=== PATIENT | male | born 1980 | race American Indian/Alaskan Native ===

== ENCOUNTER 2021-02-15 12:42 | Emergency (ER) | payer SELFPAY ==
[2021-02-15 12:46] VITALS: BP 124/78
--- NOTE | 2021-02-15 12:49 | Event Note ---
ED Screening Note Date of service: 02/15/21 Time: 12:47 ED Screening Note: 40 y/o male comes in for erection since 3 am. This initial assessment/diagnostic orders/clinical plan/treatment(s) is/are subject to change based on patients health status, clinical progression and re- assessment by fellow clinical providers in the ED. Further treatment and workup at subsequent clinical providers discretion. Patient/guardian urged not to elope from the ED as their condition may be serious if not clinically assessed and managed. Initial orders include: Patient roomed to room 38 immediately, inform charge nurse.
[2021-02-15] MEDS ORDERED: TERBUTALINE 1 MG/1 ML INJ SUB-Q ONE (12:55)
--- NOTE | 2021-02-15 13:01 | Emergency Department Report ---
ED General Adult HPI - General Chief complaint: Urogenital-Male Stated complaint: PROLONGED ERECTION Time Seen by Provider: 02/15/21 12:49 Source: patient Mode of arrival: Ambulatory Limitations: No Limitations - History of Present Illness Initial comments: Patient is 40 years old male with history of sickle cell trait. Patient presented to the ER complaining of prolonged erection started approximately 11 hours ago. Patient stated that he used phentolamine papeverine and prostaglandin injection for and both times. Patient stated he never used it before. Patient denied any psychiatric history or taking any other medication. - Related Data Allergies Allergy/AdvReac Type Severity Reaction Status Date / Time No Known Allergies Allergy Verified 02/15/21 12:45 ED Review of Systems ROS: Stated complaint: PROLONGED ERECTION Other details as noted in HPI Comment: All other systems reviewed and negative Constitutional: denies: chills, fever Respiratory: denies: cough, shortness of breath, SOB with exertion, SOB at rest Cardiovascular: denies: chest pain, palpitations Gastrointestinal: denies: abdominal pain Genitourinary: other (Priapism) Musculoskeletal: denies: back pain Neurological: denies: headache, weakness ED Physical Exam - General Limitations: No Limitations General appearance: alert, in no apparent distress - Head Head exam: Present: atraumatic, normocephalic, normal inspection - Eye Eye exam: Present: normal appearance - ENT ENT exam: Present: normal exam, normal orophraynx, mucous membranes moist - Neck Neck exam: Present: normal inspection, full ROM. Absent: tenderness, meningismus - Respiratory Respiratory exam: Present: normal lung sounds bilaterally - Cardiovascular Cardiovascular Exam: Present: regular rate, normal rhythm, normal heart sounds - GI/Abdominal GI/Abdominal exam: Present: soft, normal bowel sounds. Absent: distended, tenderness, guarding, rebound, rigid, organomegaly, mass, bruit, pulsatile mass, hernia - exam: Present: other (Priapism). Absent: urethral discharge, scrotal swelling, circumcision External exam: Absent: lacerations, ecchymosis - Extremities Exam Extremities exam: Present: normal inspection, full ROM, normal capillary refill. Absent: tenderness - Back Exam Back exam: Present: normal inspection. Absent: CVA tenderness (R), CVA tenderness (L) - Neurological Exam Neurological exam: Present: alert, oriented X3, CN II-XII intact - Psychiatric Psychiatric exam: Present: normal mood - Skin Skin exam: Present: warm, intact, normal color ED Course Vital Signs 02/15/21 02/15/21 12:43 12:55 Temperature 98.6 F Pulse Rate 73 Respiratory 18 Rate Blood Pressure 124/78 [Left] O2 Sat by Pulse 99 99 Oximetry ED Medical Decision Making - Medical Decision Making Patient is 40 years old male with history of sickle cell trait. Patient presented to the ER complaining of prolonged erection started approximately 11 hours ago. Patient stated that he used phentolamine papeverine and prostaglandin injection for and both times. Patient stated he never used it before. Patient denied any psychiatric history or taking any other medication. Patient received terbutaline, Sudafed, morphine and Zofran. Patient stated that he is feeling much better and his erection is completely gone. I examined him patient is flaccid. There is good pulsation on both side. Patient advised not to use that medication again. Patient advised to follow-up with his primary doctor in the next 2 to 3 days and to return to the ER if he develop any new symptoms. Critical care attestation.: If time is entered above; I have spent that time in minutes in the direct care of this critically ill patient, excluding procedure time. ED Disposition Clinical Impression: Priapism Disposition: 01 HOME / SELF CARE / HOMELESS Is pt being admited?: No Condition: Stable Instructions: Priapism Referrals: PRIMARY CARE, [Primary Care Provider] - 3-5 Days
[2021-02-15] MEDS: PSEUDOEPHEDRINE 30 MG TAB PO ONE ×2 (13:12→13:31)
[2021-02-15] MEDS ORDERED: MORPHINE 4 MG/1 ML INJ IM ONE (14:29)
[2021-02-15] MEDS ORDERED: ONDANSETRON 4 MG/2 ML INJ IM ONE (14:29)
[2021-02-15] MEDS ORDERED: PHENYLEPHRINE/NS 1,000 MCG/10 ML SYRINGE (OR USE) IV NR ×2 (15:00)
== END 2021-02-15 16:00 | disposition home or self-care (01) ==
LOC: ED 12:42
DX: N48.30 Priapism, unspecified (principal)
CPT/HCPCS: 96372; 99283; J2270; J2405; J3105